=== PATIENT | male | born 1955 | race American Indian/Alaskan Native ===

== ENCOUNTER 2021-10-25 20:16 | Emergency (ER) | payer SELFPAY ==
[2021-10-25 20:34] VITALS: BP 118/75
--- NOTE | 2021-10-25 20:52 | Emergency Department Report ---
ED Extremity Problem HPI - General Chief complaint: Skin/Abscess/Foreign Body Stated complaint: FOREIGN OBJECT IN RT FOOT Source: patient Mode of arrival: Ambulatory Limitations: No Limitations - History of Present Illness Initial comments: 66-year-old male presents to the ER today with complaints of possible splinter to his right foot. Patient states that he was taking a shower this evening, when he felt a sharp pain to the plantar aspect of his foot. When he looked and rubbed across his foot, he felt like something was in there. He does admit that he was walking around his house earlier today barefooted but at the time he does not recall anything puncturing his foot. He reports pain when touching the area and with ambulation. He reports no additional symptoms at this time. MD Complaint: other (Possible splinter right foot ) -: This evening - Related Data Allergies Allergy/AdvReac Type Severity Reaction Status Date / Time No Known Allergies Allergy Unverified 10/25/21 20:38 ED Review of Systems ROS: Stated complaint: FOREIGN OBJECT IN RT FOOT Other details as noted in HPI Comment: All other systems reviewed and negative Musculoskeletal: other (Foot pain) Skin: other (Puncture wound, possible foreign body) ED Past Medical Hx - Past Medical History Previous Medical History?: No - Surgical History Past Surgical History?: No - Social History Smoking Status: Never Smoker Substance Use Type: None ED Physical Exam - General Limitations: No Limitations General appearance: alert, in no apparent distress - Respiratory Respiratory exam: Absent: respiratory distress - Cardiovascular Cardiovascular Exam: Present: regular rate - Expanded Lower Extremity Exam Right Neuro vascular tendon exam: Present: no vascular compromise. Absent: pulse deficit, abnormal cap refill, motor deficit, sensory deficit, tendon deficit Gait: Positive: observed and normal 1 - Small puncture wound noted to this area with what appears to be a small foreign body. It is tender to palpate. No erythema. No swelling. No pus drainage. No induration or fluctuance. - Neurological Exam Neurological exam: Present: alert, oriented X3, CN II-XII intact, normal gait ED Course Vital Signs 10/25/21 20:29 Temperature 97.9 F Pulse Rate 69 Respiratory 18 Rate Blood Pressure 118/75 O2 Sat by Pulse 98 Oximetry ED Medical Decision Making - Radiology Data Radiology results: report reviewed Patient: DURAN DIAZ MR#: [id number] : 1955 Acct:[id number] Age/Sex: 66 / M ADM Date: 10/25/21 Loc: ED Attending Dr: Ordering Physician: ROSSY BURCH Date of Service: 10/25/21 Procedure(s): XR foot 3+V RT Accession Number(s): [id number] cc: ROSSY BURCH Fluoro Time In Minutes: Right foot 3 view INDICATION: Right foot pain following injury IMPRESSION: The bones and joint spaces are unremarkable. There is some swelling of the soft tissues of the fourth and little toes distally. Signer Name: Carlyle Snyder MD Signed: 10/25/2021 9:16 PM Workstation Name: [id number] Transcribed By: Dictated By: Carlyle Snyder MD Electronically Authenticated By: Carlyle Snyder MD Signed Date/Time: 10/25/212115 DD/ 15 TD/TT: - Medical Decision Making Patient did have a small puncture wound his plantar right foot with a retained tiny piece of what appeared to be glass. This was removed by me pressing on the area and using a alligator forcep. Patient tolerate procedure without complication. It was removed in 1 piece. X-ray shows no apparent retained foreign body. No signs of infection on exam. Wound care discussed with patient. Patient expressed understanding and agreed with plan. Patient was stable at time of d/c. Critical care attestation.: If time is entered above; I have spent that time in minutes in the direct care of this critically ill patient, excluding procedure time. ED Disposition Clinical Impression: Puncture wound of foot, Foreign body (FB) in soft tissue Disposition: 01 HOME / SELF CARE / HOMELESS Is pt being admited?: No Does the pt Need Aspirin: No Condition: Stable Instructions: Puncture Wound, [id number] Additional Instructions: Keep area clean with soap and water. You can apply thin layer of neosporin after cleaning. You can take motrin or tylenol for pain. Return to ED if any signs and symptoms of infection such as increased redness, pus drainage, and pain. Ot herwise follow up with PCP. Referrals: PRIMARY CARE, [Primary Care Provider] - 3-5 Days Time of Disposition: 21:36
--- NOTE | 2021-10-25 21:21 | XRay Report ---
Right foot 3 view INDICATION: Right foot pain following injury IMPRESSION: The bones and joint spaces are unremarkable. There is some swelling of the soft tissues o f the fourth and little toes distally. Signer Name: Carlyle Snyder MD Signed: 10/25/2021 9:16 PM Workstation Name: [id number]
[2021-10-25] MEDS ORDERED: NEOMY 3.5 MG/BACIT 400 UNITS/POLY B 5000 UNITS/GM OINT PACKET TP ONE (21:53)
== END 2021-10-25 22:30 | disposition home or self-care (01) ==
LOC: ED 20:16
DX: S91.341A Puncture wound with foreign body, right foot, initial encounter (principal); X58.XXXA Exposure to other specified factors, initial encounter; Y93.89 Activity, other specified; Y92.89 Other specified places as the place of occurrence of the external cause; Y99.8 Other external cause status
CPT/HCPCS: 99283

== ENCOUNTER 2021-10-29 06:19 | Emergency (ER) | payer SELFPAY ==
--- NOTE | 2021-10-29 07:28 | Emergency Department Report ---
ED General Adult HPI - General Chief complaint: High BP Stated complaint: HIGH BP Time Seen by Provider: 10/29/21 07:21 Source: patient Mode of arrival: Ambulatory Limitations: No Limitations - History of Present Illness Initial comments: 66-year-old -[place] male presents to the emergency room stating he has high blood pressure. Patient reports he has not been diagnosed with hypertension but I brought him a new blood pressure cuff and and had a reading of 165/100. Patient states that he had a headache a few days ago but none today. He denies any vision changes denies any chest pain shortness of breath no nausea no vomiting no leg swelling. 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 States he think it could be due to his mattress not being very comfortable and tends to be having pain. Patient currently does not have a primary care provider. Today's patient's blood pressure in triage is 150/92 heart rate 65, 98% room air and temperature 98.1. Onset/Timin -: days(s) Improves with: none Worsens with: none Associated Symptoms: denies other symptoms - Related Data Allergies Allergy/AdvReac Type Severity Reaction Status Date / Time No Known Allergies Allergy Verified 10/29/21 06:25 ED Review of Systems ROS: Stated complaint: HIGH BP Other details as noted in HPI Comment: All other systems reviewed and negative ED Past Medical Hx - Past Medical History Hx Hypertension: Yes - Surgical History Past Surgical History?: No - Social History Smoking Status: Never Smoker Substance Use Type: None ED Physical Exam - General Limitations: No Limitations General appearance: alert, in no apparent distress - Head Head exam: Present: atraumatic, normocephalic - Eye Eye exam: Present: normal appearance - ENT ENT exam: Present: mucous membranes moist - Neck Neck exam: Present: normal inspection - Respiratory Respiratory exam: Present: normal lung sounds bilaterally. Absent: respiratory distress - Cardiovascular Cardiovascular Exam: Present: regular rate, normal rhythm. Absent: systolic murmur, diastolic murmur, rubs, gallop - GI/Abdominal GI/Abdominal exam: Present: soft, normal bowel sounds - Rectal Rectal exam: Present: deferred - Extremities Exam Extremities exam: Present: normal inspection. Absent: pedal edema - Back Exam Back exam: Present: normal inspection - Neurological Exam Neurological exam: Present: alert, oriented X3 - Psychiatric Psychiatric exam: Present: normal affect, normal mood - Skin Skin exam: Present: warm, dry, intact, normal color. Absent: rash ED Course Vital Signs 10/29/21 06:20 Temperature 98.1 F Pulse Rate 65 Respiratory 18 Rate Blood Pressure 150/92 [Right] O2 Sat by Pulse 98 Oximetry ED Medical Decision Making - Medical Decision Making 66-year-old -[place] male presents to the emergency room stating he has high blood pressure. Patient reports he has not been diagnosed with hypertension but I brought him a new blood pressure cuff and and had a reading of 165/100. Patient states that he had a headache a few days ago but none today. He denies any vision changes denies any chest pain shortness of breath no nausea no vomiting no leg swelling. 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 States he think it could be due to his mattress not being very comfortable and tends to be having pain. Patient currently does not have a primary care provider. Today's patient's blood pressure in triage is 150/92 heart rate 65, 98% room air and temperature 98.1. Discussed with patient that he needs to follow-up with a primary care provider I have listed several below for his convenience. Critical care attestation.: If time is entered above; I have spent that time in minutes in the direct care of this critically ill patient, excluding procedure time. ED Disposition Clinical Impression: Elevated blood pressure reading Disposition: HOME / SELF CARE / HOMELESS Is pt being admited?: No Does the pt Need Aspirin: No Condition: Stable Instructions: DASH Eating Plan, Hypertension, Adult, [id number], Preventing Hypertension, Managing Your Hypertension Additional Instructions: Recommend to follow up with a Primary Care Provider. Increase your fluids. Follow low sodium diet. Referrals: PRISCILA BOSWELL MD [Staff Physician] - 3-5 Days CARY SHANKAR MD [Staff Physician] - 3-5 Days Time of Disposition: 07:27
[2021-10-29 07:51] VITALS: BP 161/86
== END 2021-10-29 07:50 | disposition home or self-care (01) ==
LOC: ED 06:19
DX: R03.0 Elevated blood-pressure reading, without diagnosis of hypertension (principal); R51.9 Headache, unspecified
CPT/HCPCS: 99282